=== PATIENT | male | born 1935 | race African-American/Black ===

== ENCOUNTER → 2020-09-20 | Day surgery (SDC) | payer MEDICARE, OTHER ==
[~2020-09-20] MED LIST: ALLOPURINOL100 MG PO; ASCORBIC ACID500 MG PO; ASPIRIN EC81 MG PO; COZAAR100 MG PO; D3-5050000 UNIT PO; FLOMAX0.4 MG PO; HCTZ25 MG PO; IMDUR 30MG TABL30 MG PO; INDOCIN25 MG PO; IRON325 M1 PO; JANUVIA50 MG PO; KEPPRA500 MG PO; LATANOPROST2.5 ML EYEBOTH; MAG-OXIDE 400M400 MG PO; METFORMIN HCL500 MG PO; MICRONASE5 MG PO; MULTIVITAMINS1 EAC1 PO; NORVASC5 MG PO; OLMESARTAN-HCT1 EAC2 PO; PROBIOTIC1 EAC1 PO; STOOL SOFTENER100 MG PO; ZOFRAN4 MG PO
== END | disposition home or self-care (01) ==
LOC: FAS 08-23 13:30
DX: H26.9 Unspecified cataract (principal); F03.90 Unspecified dementia, unspecified severity, without behavioral disturbance, psychotic disturbance, mood disturbance, and anxiety; N40.0 Benign prostatic hyperplasia without lower urinary tract symptoms; M10.9 Gout, unspecified; I10 Essential (primary) hypertension; Z79.899 Other long term (current) drug therapy; Z90.49 Acquired absence of other specified parts of digestive tract
CPT/HCPCS: J2250; V2632

== ENCOUNTER → 2020-10-18 | Day surgery (SDC) | payer MEDICARE, OTHER | END | disposition home or self-care (01) | LOC: FAS 12:07 | DX: H25.13 Age-related nuclear cataract, bilateral (principal); H49.12 Fourth [trochlear] nerve palsy, left eye; H02.403 Unspecified ptosis of bilateral eyelids; M19.90 Unspecified osteoarthritis, unspecified site; J44.9 Chronic obstructive pulmonary disease, unspecified; E11.36 Type 2 diabetes mellitus with diabetic cataract; I10 Essential (primary) hypertension; F17.200 Nicotine dependence, unspecified, uncomplicated; Z79.84 Long term (current) use of oral hypoglycemic drugs; Z79.899 Other long term (current) drug therapy; Z20.822 Contact with and (suspected) exposure to COVID-19; Z86.73 Personal history of transient ischemic attack (TIA), and cerebral infarction without residual deficits; Z86.69 Personal history of other diseases of the nervous system and sense organs | CPT/HCPCS: V2632 ==